=== PATIENT | female | born 1955 | race Caucasian/White ===

== ENCOUNTER → 2017-11-14 | Outpatient (CLI) | payer OTHER | LOC: FIMAGING 15:53 | DX: M19.032 Primary osteoarthritis, left wrist (principal); M19.031 Primary osteoarthritis, right wrist; M18.0 Bilateral primary osteoarthritis of first carpometacarpal joints ==

== ENCOUNTER 2017-12-22 02:37 | Emergency (ER) | payer OTHER ==
--- NOTE | 2017-12-22 02:57 | EDPHY ---
H & P Stated Complaint: left leg numbness Time Seen by Provider: 12/22/17 02:57 HPI/ROS: HPI CHIEF COMPLAINT: Left-sided numbness and tingling. HISTORY OF PRESENT ILLNESS: This is a 62-year-old female, she presents emergency room by EMS for left-sided numbness and tingling. Initially she states she felt a cramp in the left leg this woke her from sleep around 2:00 a.m. Or over an hour ago. She noticed that her left leg was numb. She now reports that her left arm and left side her face her numb. This runner called 911. Upon arrival to the emergency room I did Greet her. She complaining of worsening numbness in her left leg compared to her left arm and left face. She denies any chest pain or shortness of breath, denies trauma, denies headache. Denies any weakness. Given that she is complaining of left-sided numbness to her arm face and leg a stroke alert has been called. However she has no other focal neuro deficit on exam. Past Medical History: Arthritis, unclear exactly the etiology of this. Raynauds. Past Surgical History: Denies recent surgery Social History: Denies drugs alcohol tobacco. Lives locally. Family History: Noncontributory ROS REVIEW OF SYSTEMS: 10 Systems were reviewed and negative with the exception of the elements mentioned in the history of present illness. Exam Constitutional triage nursing summary reviewed, vital signs reviewed, awake/ alert. Eyes normal conjunctivae and sclera, EOMI, PERRLA. HENT normal inspection, atraumatic, moist mucus membranes, no epistaxis, neck supple/ no meningismus, no raccoon eyes. Respiratory clear to auscultation bilaterally, normal breath sounds, no respiratory distress, no wheezing. Cardiovascular rate normal, regular rhythm, no murmur, no edema, distal pulses normal. Gastrointestinal soft, non-tender, no rebound, no guarding, normal bowel sounds, no distension, no pulsatile mass. Genitourinary no CVA tenderness. Musculoskeletal Warm extremities bilaterally, good DP bilaterally, poor nail hygiene on bilateral feet, also some purplish discoloration of her legs bilaterally which she tells me is chronic, not new, no midline vertebral tenderness, full range of motion, no calf swelling, no tenderness of extremities , no meningismus, good pulses, neurovascularly intact. Skin pink, warm, & dry, no rash, skin atraumatic. Neurologic patient complains of subjective numbness left leg, left arm, left face, otherwise no focal weakness awake, alert and oriented x 3, AAOx3, moves all 4 extremities equally, motor intact, sensory intact, CN II-XII intact, normal cerebellar, normal vision, normal speech. Psychiatric normal mood/affect. Heme/Lymph/Immune no lymphadenopathy. Differential Diagnosis: Includes but is not limited to in a particular order TIA, CVA, intracranial bleed, peripheral neuropathy, muscle cramp, electrolyte disturbance, dehydration Medical Decision Making: Given the patient's complaint of the left-sided symptoms stroke alert has been called. Shows no focal weakness on exam in her symptoms are extremely mild. Doubt she has a tPA candidate however will discuss with Neurology. Re-evaluation: 0320: I discussed the case in detail with Dr. Myers, [facility]. He does not feel this patient tPA candidate given how mild her symptoms are. Would proceed with CT scan head without contrast angiogram. Admit for further evaluation. EKG interpretation by me on record in [facility] system. Impression time of EKG 318, sinus rhythm rate of 63, no signs of acute ischemia. CT scan head without contrast negative for acute bleed or stroke called to me by Dr. Wise. CT angiogram head and neck are negative for acute large vessel occlusion or dissection or bleed. Dr. Wise. 0505: I had a long discussion with the patient about her CT results. And further need for admission to the hospital for observation and MRI testing and for neurology to see. I explained that her CT angiogram and CT scan head without contrast did not show a large bleeder big stroke however given her left- sided numbness of left face left arm and left leg is prudent to do an MRI for small stroke or further evaluation of this. She has declined this. She is declining hospitalization. She does not want to be admitted. She is a [facility] patient I offered to contact [facility] for her to transfer her to a [facility] facility for further evaluation however she declined She is refusing hospitalization. I had a long discussion with her about this and need for hospitalization and if she leaves that she is at risk of great morbidity, significant neurological dysfunction, mortality, further stroke like symptoms, a massive stroke leading to debilitation, or . The patient understands this. I have explained this at length with her. She has capacity. I did recommend she follows up with primary care doctor as well as Neurology And and that if she changes her mind she should return emergency room. Additionally if she has progression or worsening symptoms she should immediately return She understands this. Again I spent a large amount of time offering to admit her and trying apease why she does not want to be admitted however she still refuses hospitalization she understands she will need to sign out against medical advice. I did go over blood work a thorough slightly low sodium. Her neurological exam this time shows no weakness. She does still complain of left-sided numbness. Highly recommend admission however she has declined. Source: Patient, EMS - Personal History Current Tetanus/Diphtheria Vaccine: Yes Current Tetanus Diphtheria and Acellular Pertussis (TDAP): Yes - Medical/Surgical History Other PMH: Joint pain, reynads, arthritis. Constitutional: Initial Vital Signs Temperature (C) 36.3 C 12/22/17 02:41 Heart Rate 60 12/22/17 02:41 Respiratory Rate 18 12/22/17 02:41 Blood Pressure 122/72 H 12/22/17 02:41 O2 Sat (%) 98 12/22/17 02:41 O2 Delivery Mode Room Air Allergies/Adverse Reactions: No Allergies [NKDA] Allergy (Verified 12/22/17 02:49) INSECTS WITH STINGERS Allergy (Intermediate, Uncoded 12/22/17 02:49) Other-Enter Comments Home Medications: Medication Instructions Recorded Naproxen Sodium 220 mg PO Q8 12/22/17 Medical Decision Making - Data Points Laboratory Results: Laboratory Results 12/22/17 02:35 12/22/17 02:35 12/22/17 12/22/17 12/22/17 03:22 02:35 02:35 WBC RBC Hgb POC Hgb 13.6 gm/dL gm/dL (12.6-16.3) Hct POC Hct 40 % % (38-47) MCV MCH MCHC RDW Plt Count MPV Neut % (Auto) Lymph % (Auto) [place] % (Auto) Eos % (Auto) Baso % (Auto) Nucleat RBC Rel Count Absolute Neuts (auto) Absolute Lymphs (auto) Absolute Monos (auto) Absolute Eos (auto) Absolute Basos (auto) Absolute Nucleated RBC Immature Gran % Immature Gran # PT 12.4 SEC SEC (12.0-15.0) INR 0.90 (0.83-1.16) POC Sodium 130 mEq/L L mEq/L (135-145) Sodium 130 mEq/L L mEq/L (135-145) POC Potassium 3.7 mEq/L mEq/L (3.3-5.0) Potassium 4.0 mEq/L mEq/L (3.3-5.0) POC Chloride 91 mEq/L L mEq/L (97-110) Chloride 93 mEq/L L mEq/L (97-110) Carbon Dioxide 26 mEq/l mEq/l (22-31) Anion Gap 11 mEq/L mEq/L (6-14) POC BUN 25 mg/dL H mg/dL (7-23) BUN 21 mg/dL mg/dL (7-23) Creatinine 0.6 mg/dL mg/dL (0.6-1.0) POC Creatinine 0.6 mg/dL mg/dL (0.6-1.0) Estimated GFR > 60 Glucose 107 mg/dL H mg/dL (70-100) POC Glucose 94 mg/dL mg/dL (70-100) Calcium 9.5 mg/dL mg/dL (8.5-10.4) 12/22/17 02:35 WBC 9.18 10^3/uL 10^3/uL (3.80-9.50) RBC 4.33 10^6/uL 10^6/uL (4.18-5.33) Hgb 13.6 g/dL g/dL (12.6-16.3) POC Hgb Hct 38.4 % % (38.0-47.0) POC Hct MCV 88.7 fL fL (81.5-99.8) MCH 31.4 pg pg (27.9-34.1) MCHC 35.4 g/dL g/dL (32.4-36.7) RDW 13.0 % % (11.5-15.2) Plt Count 336 10^3/uL 10^3/uL (150-400) MPV 10.7 fL fL (8.7-11.7) Neut % (Auto) 50.7 % % (39.3-74.2) Lymph % (Auto) 38.2 % % (15.0-45.0) [place] % (Auto) 8.8 % % (4.5-13.0) Eos % (Auto) 1.4 % % (0.6-7.6) Baso % (Auto) 0.7 % % (0.3-1.7) Nucleat RBC Rel Count 0.0 % % (0.0-0.2) Absolute Neuts (auto) 4.65 10^3/uL 10^3/uL (1.70-6.50) Absolute Lymphs (auto) 3.51 10^3/uL H 10^3/uL (1.00-3.00) Absolute Monos (auto) 0.81 10^3/uL H 10^3/uL (0.30-0.80) Absolute Eos (auto) 0.13 10^3/uL 10^3/uL (0.03-0.40) Absolute Basos (auto) 0.06 10^3/uL 10^3/uL (0.02-0.10) Absolute Nucleated RBC 0.00 10^3/uL 10^3/uL (0-0.01) Immature Gran % 0.2 % % (0.0-1.1) Immature Gran # 0.02 10^3/uL 10^3/uL (0.00-0.10) PT INR POC Sodium Sodium POC Potassium Potassium POC Chloride Chloride Carbon Dioxide Anion Gap POC BUN BUN Creatinine POC Creatinine Estimated GFR Glucose POC Glucose Calcium Medications Given: Discontinued Medications Sodium Chloride (Ns) 1,000 mls @ 0 mls/hr IV ONCE ONE; Wide Open PRN Reason: Protocol Stop: 12/22/17 03:11 Last Admin: 12/22/17 03:40 Dose: 1,000 mls Point of Care Test Results: Chemistry 12/22/17 03:22 POC Sodium 130 mEq/L L mEq/L (135-145) POC Potassium 3.7 mEq/L mEq/L (3.3-5.0) POC Chloride 91 mEq/L L mEq/L (97-110) POC BUN 25 mg/dL H mg/dL (7-23) POC Creatinine 0.6 mg/dL mg/dL (0.6-1.0) POC Glucose 94 mg/dL mg/dL (70-100) ISTAT H&H 12/22/17 03:22 POC Hgb 13.6 gm/dL gm/dL (12.6-16.3) POC Hct 40 % % (38-47) Departure - Departure Disposition: Against Medical Advice Clinical Impression: Numbness Condition: Serious Instructions: Paresthesia (ED) Additional Instructions: 1. Please follow up with your primary care doctor 2. Please follow up with Neurology 3. If you change of mind about being admitted return immediately to the ER if you have progression of symptoms return immediately to the ER. Referrals: NONE *PRIMARY CARE P,. [Primary Care Provider] - As per Instructions Chris Resendiz MD [Medical Doctor] - As per Instructions
[2017-12-22] MEDS ORDERED: NS 1,000 ML IV ONE (03:10)
[2017-12-22] MEDS ORDERED: IOPAMIDOL (ISOVUE 370) 100 ML BTL IV ONE (03:15)
[2017-12-22 03:25] LABS: INR 0.9 (0.83-1.16); PROTIME(PATIENT) 12.4 SEC (12.0-15.0)
[2017-12-22 03:33] LABS: PLATELET COUNT 336 10^3/uL (150-400)
[2017-12-22 05:21] VITALS: BP 108/87
--- NOTE | 2017-12-25 05:48 | CPEKG ---
Test Reason : OPEN Blood Pressure : / mmHG Vent. Rate : 063 BPM Atrial Rate : 062 BPM P-R Int : 164 ms QRS Dur : 070 ms QT Int : 424 ms P-R-T Axes : 080 049 066 degrees QTc Int : 435 ms Sinus rhythm Confirmed by Marin Mena ([id number]) on 12/25/2017 5:47:36 AM Referred By: Confirmed By:Marin Mena
== END 2017-12-22 05:24 | disposition left against medical advice (07) ==
LOC: EDUNIT#
DX: R20.0 Anesthesia of skin (principal); R20.2 Paresthesia of skin; E86.9 Volume depletion, unspecified; I73.00 Raynaud's syndrome without gangrene
CPT/HCPCS: 82435-PO; 82565-PO; 82947-PO; 84132-PO; 84295-PO; 84520-PO; 85014-PO; Q9967

== ENCOUNTER → 2018-03-11 | Outpatient (CLI) | payer OTHER | LOC: FIMAGING 12:52 | PROVIDERS: ATTEND Orthopaedic Surgery | DX: M19.011 Primary osteoarthritis, right shoulder (principal); M19.012 Primary osteoarthritis, left shoulder; M75.102 Unspecified rotator cuff tear or rupture of left shoulder, not specified as traumatic ==

== ENCOUNTER → 2018-04-03 | Outpatient (CLI) | payer OTHER | LOC: FIMAGING 13:38 | PROVIDERS: ATTEND Internal Medicine Infectious Disease | DX: S91.102A Unspecified open wound of left great toe without damage to nail, initial encounter (principal); X58.XXXA Exposure to other specified factors, initial encounter; Y92.9 Unspecified place or not applicable; Y93.9 Activity, unspecified ==